=== PATIENT | female | born 1965 | race Two or more races ===

== ENCOUNTER 2021-09-07 19:47 | Emergency (ER) | payer OTHER ==
[~2021-09-07] VITALS: Ht 149.9 cm; Wt 77.1 kg
[2021-09-08] MEDS ORDERED: ONDANSETRON HCL 4 MG/2 ML VIAL IV ONE (00:45)
[2021-09-08] MEDS ORDERED: HYDROmorphone HCL 2 MG/ML VL/or syr IV ONE (00:45)
[2021-09-08 01:16] VITALS: BP 170/90
== END 2021-09-08 01:33 | disposition short-term general hospital (02) ==
LOC: ER 19:47
DX: S22.41XA Multiple fractures of ribs, right side, initial encounter for closed fracture (principal); S22.20XA Unspecified fracture of sternum, initial encounter for closed fracture; Z88.0 Allergy status to penicillin; Z91.041 Radiographic dye allergy status; V49.69XA Unspecified car occupant injured in collision with other motor vehicles in traffic accident, initial encounter; Y93.89 Activity, other specified; Y92.410 Unspecified street and highway as the place of occurrence of the external cause; Y99.8 Other external cause status
CPT/HCPCS: 71250; 93005; 96374; 96375; 99285; J1170; J2405

== ENCOUNTER 2022-11-07 15:10 | Emergency (ER) | payer BC ==
[~2022-11-07] VITALS: Ht 149.9 cm; Wt 81.8 kg
[2022-11-07] MEDS ORDERED: KETOROLAC TROMETH 60MG/2ML VIAL IM ONE (16:30)
[2022-11-07] MEDS ORDERED: HYDROcodone-ACET 5/325MG TAB PO ONE (16:30)
[2022-11-07 18:51] VITALS: BP 177/77; PULSE 71; RESP 18; TEMP 97.8; O2SAT 96
== END 2022-11-07 20:15 | disposition home or self-care (01) ==
LOC: ER 15:10
DX: M79.642 Pain in left hand (principal); Z53.21 Procedure and treatment not carried out due to patient leaving prior to being seen by health care provider
CPT/HCPCS: 73130; 96372; 99281; J1885